=== PATIENT | female | born 1995 | race Caucasian/White ===

== ENCOUNTER 2016-04-29 06:54 | Emergency (ER) | payer OTHER ==
[~2016-04-29] VITALS: Ht 175.3 cm; Wt 114.0 kg
[2016-04-29] MEDS ORDERED: LIDOCAINE HCL/PF 1% 2 ML VIAL IM ONE (07:45)
[2016-04-29] MEDS ORDERED: CefTRIAXone SODIUM 1 GM/VIAL IM ONE (07:45)
[2016-04-29 08:01] VITALS: BP 133/88
== END 2016-04-29 08:04 | disposition home or self-care (01) ==
LOC: EMS 06:55
DX: J03.90 Acute tonsillitis, unspecified (principal); F17.210 Nicotine dependence, cigarettes, uncomplicated
CPT/HCPCS: 96372; 99284; J0696; J3490

== ENCOUNTER 2018-06-21 17:13 | Emergency (ER) | payer BC, OTHER ==
[~2018-06-21] VITALS: Ht 175.3 cm; Wt 120.5 kg
[2018-06-21 21:37] LABS: URIC ACID 5.3 mg/dL (2.6-7.2)
[2018-06-21 21:56] LABS: HCG,QUANTITATIVE < 1 mIU/mL (0-6)
[2018-06-21 22:43] VITALS: BP 137/81
== END 2018-06-21 22:54 | disposition home or self-care (01) ==
LOC: EMS 17:16
DX: M79.672 Pain in left foot (principal); R03.0 Elevated blood-pressure reading, without diagnosis of hypertension
CPT/HCPCS: 84550